=== PATIENT | female | born 1985 | race Caucasian/White ===

== ENCOUNTER 2019-06-05 11:18 | Emergency (ER) | payer OTHER ==
[~2019-06-05] VITALS: Ht 162.6 cm; Wt 86.2 kg
[2019-06-05] MEDS ORDERED: ZITHROMAX500 MG PO (15:45)
== END 2019-06-05 15:51 | disposition home or self-care (01) ==
LOC: ER 11:18
DX: E16.1 Other hypoglycemia (principal)